=== PATIENT | female | born 1945 | race Caucasian/White ===

== ENCOUNTER 2024-03-15 15:17 | Outpatient (CLI) | payer MEDICARE, OTHER, SELFPAY ==
[2024-03-15 15:24] LABS: Bacteria 0 SEEN /hpf (None Seen); Mucous, Urine 0 SEEN /hpf (<or=2+); Red Blood Cells-Urine 0 SEEN /hpf (0-5)
[2024-03-15 18:03] LABS: Color, Urine Yellow (Yellow); Glucose, Dipstick Normal (Normal); Ketone-Dipstick Negative (Negative); Leukocyte Esterase-Dipstick 100 /ul (Negative); Nitrite-Dipstick Negative (Negative); Occult Blood-Urine Negative /ul (Negative); Protein-Dipstick Negative (Negative); Urine Bilirubin Dipstick Negative (Negative); Urine Clarity Clear (Clear); Urine Urobilinogen Normal (Normal)
[2024-03-15 18:15] LABS: Squamous Epithelial Cells - UA 0-5 SEEN /hpf (5-10); White Blood Cells 0-5 SEEN /hpf (0-5)
[2024-03-17 14:10] LABS: Anti-Nuclear Antibody Test Negative (.); Anti-dsDNA Ab <1 IU/mL (0-9)
[2024-03-17 16:10] LABS: Complement CH50 57 U/mL (>41)
== END 2024-03-15 23:59 | disposition home or self-care (01) ==
LOC: MTLAB 15:19
PROVIDERS: PCP Family Medicine; Referring Provider Dermatology Pediatric Dermatology; Visit Provider Dermatology Pediatric Dermatology
DX: L93.0 Discoid lupus erythematosus (principal); L85.3 Xerosis cutis
CPT/HCPCS: 36415; 81001; 86038; 86162; 86225; 87077; 87086; 87088; 87186

== ENCOUNTER → 2024-07-20 | Outpatient (CLI) | payer MEDICARE, MEDICAID, OTHER, SELFPAY ==
--- NOTE | 2024-07-20 14:56 | ECHOL_ITS ---
Reason For Study: Pericardial Effusion Procedure This was a limited 2D transthoracic echocardiogram. Exam performed in department. Left Ventricle Normal size and thickness. The left ventricular ejection fraction is 65 %. Right Ventricle Normal right ventricle. Atria The left and right atria are normal. Mitral Valve Normal mitral valve. Tricuspid Valve Trivial tricuspid valve insufficiency. Right ventricular systolic pressure estimated to be 43 mmHg. Aortic Valve Trisinus/trileaflet aortic valve. Trivial aortic valve insufficiency. Pulmonic Valve The pulmonic valve is not well visualized. Great Vessels IVC not well-visualized. Pericardium/Pleural Moderate anterior pericardial effusion. No echo evidence of tamponade. MMode/2D Measurements & Calculations LVIDd: 3.0 cm IVSd: 1.0 cm LA dimension: 3.3 cm LVIDs: 2.2 cm LVPWd: 1.0 cm FS: 26.2 % LVAd ap4: 15.9 cm2 SV(MOD-sp4): 25.0 ml SV(sp4-el): 26.2 ml LVLd ap4: 5.7 cm EDV(MOD-sp4): 36.6 ml EDV(sp4-el): 37.8 ml LVAs ap4: 8.0 cm2 LVLs ap4: 4.6 cm ESV(MOD-sp4): 11.6 ml ESV(sp4-el): 11.6 ml EF(MOD-sp4): 68.2 % EF(sp4-el): 69.3 % Doppler Measurements & Calculations TR max kelby: 308.3 cm/sec TR max P.0 mmHg ECHO/Echo, Limited Study Interpretation Summary The left ventricular ejection fraction is 65 %. Moderate anterior pericardial effusion. No echo evidence of tamponade. Right ventricular systolic pressure estimated to be 43 mmHg. Ordering Physician: Monika Larose Referring Physician: Yamileth Diaz Performed By: Kevin Bonilla RCS
== END | disposition home or self-care (01) ==
LOC: CVS 14:56
PROVIDERS: PCP Family Medicine; Referring Provider Physician Assistant Medical; Visit Provider Physician Assistant Medical
DX: I31.39 Other pericardial effusion (noninflammatory) (principal)
CPT/HCPCS: 93308